=== PATIENT | male | born 1980 | race African-American/Black ===

== ENCOUNTER 2017-05-28 20:32 | Emergency (ER) | payer OTHER ==
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
[2017-05-28] MEDS ORDERED: HYDROcodone/ACETAMINOPHEN 1 EACH TABLET PO ONE (21:02)
[2017-05-28] MEDS ORDERED: HYDROcodone/ACETAMINOPHEN 1 EACH TABLET ONE (21:06)
[2017-05-28 21:32] VITALS: BP 169/85
== END 2017-05-28 21:42 | disposition short-term general hospital (02) ==
LOC: ER 20:32
DX: T26.92XA Corrosion of left eye and adnexa, part unspecified, initial encounter (principal); Y93.9 Activity, unspecified; Y92.9 Unspecified place or not applicable; Y99.9 Unspecified external cause status